=== PATIENT | female | born 1940 | race Caucasian/White ===

== ENCOUNTER 2019-10-30 04:15 | Outpatient (CLI) | payer SELFPAY ==
[~2019-10-30 04:15] MED LIST: PHEN-786 PO
[2019-10-30 13:34] LABS: HEMOGLOBIN A1C 4.9 % (4.5-6.2)
[2019-10-30 13:49] LABS: CHOL/HDL RATIO 2.55 (0.00-4.99)
== END 2019-10-30 23:59 | disposition home or self-care (01) ==
LOC: HW HEART 04:15
DX: Z13.6 Encounter for screening for cardiovascular disorders (principal)
CPT/HCPCS: 36415

== ENCOUNTER 2019-11-06 00:25 | Outpatient (CLI) | payer SELFPAY | END 2019-11-06 23:59 | disposition home or self-care (01) | LOC: HW VAS 00:25 | DX: Z13.6 Encounter for screening for cardiovascular disorders (principal) ==